=== PATIENT | female | born 1940 | race Caucasian/White ===

== ENCOUNTER 2016-07-06 09:05 | Emergency (ER) | payer MEDICARE, BC ==
[~2016-07-06] VITALS: Ht 152.4 cm; Wt 41.0 kg
[2016-07-06 09:14] VITALS: BP 115/79; PULSE 112; RESP 18; TEMP 97.7; O2SAT 95
[2016-07-06 09:24] VITALS: BP 108/69; PULSE 119; RESP 18; O2SAT 94
[2016-07-06] MEDS ORDERED: SODIUM CHLORIDE 0.9% FLUSH 5 ML FLUSH IVF PRN (09:30)
[2016-07-06] MEDS ORDERED: ONDANSETRON HCL 4 MG/2 ML VIAL IVP ONE (09:30)
[2016-07-06] MEDS ORDERED: SODIUM CHLOR 0.9% 1000 ML INJ 1,000 ML IV SCH (09:30)
--- NOTE | 2016-07-06 09:46 | PD ---
HPI Chief Complaint: GI Complaint Time Seen by Provider: 09:30 Travel History International Travel<30 days: No Contact w/Intl Traveler<30days: No Traveled to known affect area: No History of Present Illness HPI 75-year-old female with history of no significant past medical issues, presents to the ER today because she states that she has had 4 days history of nausea, vomiting, diarrhea multiple times a day, abdominal cramping pain which are intermittent in nature and gets up to a 7 out of 10 but currently not occurring in the ER. She denies any black stools, blood in the stools, fevers, or any other symptoms. She does not know sick contacts, recent antibiotic exposure, or recent travel. She denies any exacerbating or alleviating factors. Modifying Factors: None Associated Signs & Symptoms: Nausea, vomiting, diarrhea, abdominal cramping pains Risk Factors: None PFSH Past Medical History Medical History: Denies Significant Hx Influenza Vaccination: Yes ?: Not Past Surgical History Appendectomy: Yes Social History Alcohol Use: Yes (OCCAS) Tobacco Use: Yes (1/2PPD) Substance Use: No Allergies-Medications (Allergen,Severity, Reaction): Coded Allergies: Sulfa (Verified Allergy, Intermediate, HIVES, 07/06/16) Reported Meds & Prescriptions Reported Meds & Active Scripts Active No Active Prescriptions or Reported Medications Review of Systems Except as stated in HPI: all other systems reviewed are Neg Physical Exam Narrative GENERAL: Well-developed, thin, tired appearing elderly white female in mild distress. She is alert, awake, oriented 3. SKIN: Warm and dry. HEAD: Atraumatic. Normocephalic. EYES: Pupils equal and round. No scleral icterus. No injection or drainage. ENT: No nasal bleeding or discharge. Mucous membranes pink and moist. NECK: Trachea midline. No JVD. CARDIOVASCULAR: Regular rate and rhythm. No murmur appreciated. RESPIRATORY: No accessory muscle use. Clear to auscultation. Breath sounds equal bilaterally. GASTROINTESTINAL: Abdomen soft, non-tender, nondistended. Hepatic and splenic margins not palpable. Benign. MUSCULOSKELETAL: No obvious deformities. No clubbing. No cyanosis. No edema. NEUROLOGICAL: Awake and alert. No obvious cranial nerve deficits. Motor grossly within normal limits. Normal speech. PSYCHIATRIC: Appropriate mood and affect; insight and judgment normal. Data Data Last Documented VS Vital Signs Date Time Temp Pulse Resp B/P Pulse Ox O2 Delivery O2 Flow Rate FiO2 07/06/16 09:47 96 Room Air 07/06/16 09:24 119 18 108/69 07/06/16 09:14 97.7 Orders Complete Blood Count With Diff (07/06/16 09:30) Comprehensive Metabolic Panel (07/06/16 09:30) Lipase (07/06/16 09:30) Urinalysis - C+S If Indicated (07/06/16 09:30) Iv Access Insert/Monitor (07/06/16 09:30) Ecg Monitoring (07/06/16 09:30) Oximetry (07/06/16 09:30) Ondansetron Inj (Zofran Inj) (07/06/16 09:30) Sodium Chlor 0.9% 1000 Ml Inj (Ns 1000 M (07/06/16 09:30) Sodium Chloride 0.9% Flush (Ns Flush) (07/06/16 09:30) Influenzae A/B Antigen (07/06/16 09:30) Ns + Kcl 20 Meq Inj (Ns + Kcl 20 Meq Inj (07/06/16 10:15) Labs Laboratory Tests Test 07/06/16 09:40 White Blood Count 9.6 TH/MM3 Red Blood Count 5.75 MIL/MM3 Hemoglobin 18.1 GM/DL Hematocrit 53.0 % Mean Corpuscular Volume 92.1 FL Mean Corpuscular Hemoglobin 31.4 PG Mean Corpuscular Hemoglobin 34.1 % Concent Red Cell Distribution Width 13.7 % Platelet Count 340 TH/MM3 Mean Platelet Volume 7.8 FL Neutrophils (%) (Auto) 77.4 % Lymphocytes (%) (Auto) 10.6 % Monocytes (%) (Auto) 8.5 % Eosinophils (%) (Auto) 1.2 % Basophils (%) (Auto) 2.3 % Neutrophils # (Auto) 7.5 TH/MM3 Lymphocytes # (Auto) 1.0 TH/MM3 Monocytes # (Auto) 0.8 TH/MM3 Eosinophils # (Auto) 0.1 TH/MM3 Basophils # (Auto) 0.2 TH/MM3 CBC Comment DIFF FINAL Differential Comment Sodium Level 137 MEQ/L Potassium Level 3.0 MEQ/L Chloride Level 98 MEQ/L Carbon Dioxide Level 27.8 MEQ/L Anion Gap 11 MEQ/L Blood Urea Nitrogen 45 MG/DL Creatinine 2.80 MG/DL Estimat Glomerular Filtration 16 ML/MIN Rate Random Glucose 173 MG/DL Calcium Level 9.9 MG/DL Total Bilirubin 0.5 MG/DL Aspartate Amino Transf 16 U/L (AST/SGOT) Alanine Aminotransferase 24 U/L (ALT/SGPT) Alkaline Phosphatase 122 U/L Total Protein 8.8 GM/DL Albumin 4.0 GM/DL Lipase 254 U/L MDM Medical Decision Making Medical Screen Exam Complete: Yes Emergency Medical Condition: Yes Medical Record Reviewed: Yes Interpretation(s) Laboratory Tests Test 07/06/16 09:40 Red Blood Count 5.75 MIL/MM3 (4.00-5.30) Hemoglobin 18.1 GM/DL (11.6-15.3) Hematocrit 53.0 % (35.0-46.0) Neutrophils (%) (Auto) 77.4 % (16.0-70.0) Monocytes (%) (Auto) 8.5 % (0.0-8.0) Basophils (%) (Auto) 2.3 % (0.0-2.0) Potassium Level 3.0 MEQ/L (3.5-5.1) Blood Urea Nitrogen 45 MG/DL (7-18) Creatinine 2.80 MG/DL (0.50-1.00) Estimat Glomerular Filtration 16 ML/MIN (>89) Rate Random Glucose 173 MG/DL (74-106) Alkaline Phosphatase 122 U/L (45-117) Total Protein 8.8 GM/DL (6.4-8.2) Differential Diagnosis Nausea, vomiting, diarrhea, abdominal cramping painsgastroenteritis versus pancreatitis versus gastritis versus dehydration versus metabolic issues versus influenza/viral syndrome Narrative Course Lab work shows hypokalemia and significant worsening in renal function. We do not have previous renal function to compare. However, I suspect she is significantly dehydrated. She is unable to urinate in the ER for us. IV fluids have been initiated on her including saline with potassium IV. After some hydration and Zofran. Patient is able to drink water. However, she was still unable to give us a urine sample. At this point, my plan would be to admit the patient for further IV fluid treatment and potassium treatment. However, the patient states that she feels improved and does not want to stay in the hospital. She thinks she can by mouth hydrate at home. She should return for any worsening in vomiting, any abdominal pain, new symptoms, and as needed. She should also return if she is not able to urinate by this evening at home. The risks of worsening renal failure, dysrhythmias a potassium levels worsen, and risk of worsening of condition has been discussed with the patient and she states understanding and still wants to go home. Diagnosis Primary Impression: Gastroenteritis Additional Impressions: Hypokalemia Dehydration Med/Other Pt SpecificInfo: Prescription(s) given Scripts Loperamide (Imodium A-D)2 Mg Tab2 Mg PO DIRECTED PRN (DIARRHEA) #20 TAB Ref 0 One tablet after each loose stool. Not to exceed 8 tablets per day. Prov:Nick Munoz MD 07/06/16 Potassium Chloride ER 20 Meq Tab20 Meq PO BID #10 TAB Ref 0 Prov:Nick Munoz MD 07/06/16 Ondansetron Odt (Zofran Odt)4 Mg Tab4 Mg SL Q6HR PRN (Nausea/Vomiting) #5 TAB Ref 0 Prov:Nick Munoz MD 07/06/16 Disposition: 01 DISCHARGE HOME Condition: Stable Nick Munoz MD Jul 06, 2016 09:46
[2016-07-06 09:47] VITALS: O2SAT 96
[2016-07-06 09:51] LABS: AUTOMATED NEUTROPHIL # 7.5 TH/MM3 (1.8-7.7); BASOPHIL # 0.2 TH/MM3 (0-0.2); BASOPHIL % 2.3 % (0.0-2.0); EOSINOPHIL # 0.1 TH/MM3 (0-0.4); EOSINOPHIL % 1.2 % (0.0-4.0); LYMPH % 10.6 % (9.0-44.0); MEAN CELL VOLUME 92.1 FL (80.0-100.0); MEAN CORPUSCULAR HEMOGLOBIN 31.4 PG (27.0-34.0); MEAN CORPUSCULAR HGB CONC 34.1 % (32.0-36.0); MONO % 8.5 % (0.0-8.0); NEUT % 77.4 % (16.0-70.0); PLATELET COUNT 340 TH/MM3 (150-450); RED BLOOD COUNT 5.75 MIL/MM3 (4.00-5.30); RED CELL DISTRIBUTION WIDTH 13.7 % (11.6-17.2); WHITE BLOOD COUNT 9.6 TH/MM3 (4.0-11.0)
[2016-07-06 09:52] LABS: HEMO FLAGS DIFF FINAL
[2016-07-06 09:57] LABS: CHLORIDE 98 MEQ/L (98-107); SODIUM (NA) 137 MEQ/L (136-145)
[2016-07-06 10:01] LABS: ANION GAP 11 MEQ/L (5-15); BICARBONATE 27.8 MEQ/L (21.0-32.0); BLOOD UREA NITROGEN 45 MG/DL (7-18)
[2016-07-06 10:04] LABS: ALT (GPT) 24 U/L (10-53); AST (GOT) 16 U/L (15-37); GLOMERULAR FILTRATION RATE 16 ML/MIN (>89)
[2016-07-06 10:05] LABS: TOTAL BILIRUBIN ADULT 0.5 MG/DL (0.2-1.0)
[2016-07-06 10:07] LABS: ALKALINE PHOSPHATASE 122 U/L (45-117)
[2016-07-06] MEDS ORDERED: NS + KCL 20 MEQ INJ 1,000 ML IV ONE (10:15)
[2016-07-06] MEDS ORDERED: IMOD2TAB3 PO (12:10)
[2016-07-06] MEDS ORDERED: ZOFR4TAB3 SL (12:10)
[2016-07-06] MEDS ORDERED: POTA-163 PO (12:10)
[2016-07-06 12:13] VITALS: BP 113/54; PULSE 100; RESP 18; O2SAT 97
[2016-07-06 14:21] VITALS: BP 102/57; PULSE 103; RESP 18; O2SAT 94
== END 2016-07-06 14:49 | disposition home or self-care (01) ==
LOC: PHED 09:05
DX: K52.9 Noninfective gastroenteritis and colitis, unspecified (principal); E87.6 Hypokalemia; E86.0 Dehydration; F17.210 Nicotine dependence, cigarettes, uncomplicated
CPT/HCPCS: 80053; 83690; 85025; 87804; 96361; 96365; 96366; 96375; 99284; J2405; J3480; J7030